=== PATIENT | female | born 1940 | race Caucasian/White ===

== ENCOUNTER → 2018-11-10 12:13 | Outpatient (CLI) | payer MEDICARE, OTHER, SELFPAY ==
--- NOTE | 2018-11-10 | DI.RAD.S_ITS ---
PROCEDURE: XR KNEE RT 3V INDICATIONS: RIGHT KNEE PAIN TECHNIQUE: 3 views of the knee were acquired. COMPARISON: [facility], , KNEE 3V RIGHT, 07/10/2015, 9:48. FINDINGS: Bones: No fractures or dislocations. No suspicious bony lesions. There is mild tricompartmental degenerative disease. Soft tissues: No joint effusion. No suspicious soft tissue calcifications. IMPRESSION: Mild degenerative joint disease. Dictated by: Steven Reagan M.D. on 11/10/2018 at 14:50 Approved by: Steven Reagan M.D. on 11/10/2018 at 14:51
--- NOTE | 2018-11-10 | DI.RAD.S_ITS ---
PROCEDURE: XR KNEE LT 3V INDICATIONS: LEFT KNEE PAIN TECHNIQUE: 3 views of the knee were acquired. COMPARISON: [facility], , KNEE 3V LEFT, 07/10/2015, 9:49. FINDINGS: Bones: No fractures or dislocations. No suspicious bony lesions. Mild degenerative joint disease with joint space narrowing and small osteophytes. Soft tissues: No joint effusion. No suspicious soft tissue calcifications. IMPRESSION: Mild degenerative joint disease. Dictated by: Steven Reagan M.D. on 11/10/2018 at 14:48 Approved by: Steven Reagan M.D. on 11/10/2018 at 14:50
== END ==
PROVIDERS: PCP Physician Assistant; Visit Provider Physician Assistant
DX: M25.561 Pain in right knee (principal); M25.562 Pain in left knee; M17.0 Bilateral primary osteoarthritis of knee
CPT/HCPCS: 73562

== ENCOUNTER → 2021-01-15 17:31 | Outpatient (CLI) | payer MEDICARE, OTHER, SELFPAY ==
--- NOTE | 2021-01-15 | DI.RAD.S_ITS ---
PROCEDURE: XR WRIST LT MIN 3V INDICATIONS: Left Wrist Sprain TECHNIQUE: For views of the wrist were acquired. COMPARISON: [facility], CR, XR WRIST 3+ VIEWS LEFT, 01/09/2021, 12:21. FINDINGS: Bones: No fractures or dislocations. No suspicious bony lesions. Scaphoid view: No trauma. Soft tissues: No suspicious soft tissue calcifications. 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 No fracture or traumatic subluxation is seen. Dictated by: Star Britton M.D. on 01/16/2021 at 8:14 Approved by: Star Britton M.D. on 01/16/2021 at 8:16
== END ==
PROVIDERS: PCP Physician Assistant; Referring Provider Internal Medicine; Visit Provider Internal Medicine
DX: S63.502D Unspecified sprain of left wrist, subsequent encounter (principal); X58.XXXD Exposure to other specified factors, subsequent encounter
CPT/HCPCS: 73110